=== PATIENT | male | born 1975 | race Caucasian/White ===

== ENCOUNTER 2018-03-07 15:40 | Emergency (ER) | payer MEDICAID, OTHER ==
[2018-03-07] MEDS: ACETAMINOPHEN 325 MG TAB PO (20:28)
[2018-03-07] MEDS: LIDOCAINE 1% (MDV) 10 ML INJ INJ (20:29)
[2018-03-07] MEDS: DIPHTH/TET/ACEL PERTUSS (ADULT) 0.5 ML VIAL IM (20:29)
== END 2018-03-07 21:47 | disposition home or self-care (01) ==
LOC: FTE 15:40
DX: S61.210A Laceration without foreign body of right index finger without damage to nail, initial encounter (principal); W26.9XXA Contact with unspecified sharp object(s), initial encounter; Y92.009 Unspecified place in unspecified non-institutional (private) residence as the place of occurrence of the external cause; Z23 Encounter for immunization
CPT/HCPCS: 12001; 90471; 90715; 99283-25